=== PATIENT | female | born 1980 | race Hispanic/Latino ===

== ENCOUNTER 2024-07-24 15:15 | Outpatient (CLI) | payer OTHER | END 2024-07-24 15:16 | disposition home or self-care (01) | LOC: CSHMAMMO 15:15 | PROVIDERS: ATTEND Family Medicine | DX: Z12.31 Encounter for screening mammogram for malignant neoplasm of breast (principal); N63.11 Unspecified lump in the right breast, upper outer quadrant | CPT/HCPCS: 77067 ==